=== PATIENT | female | born 1970 | race Caucasian/White ===

== ENCOUNTER → 2016-09-01 | Outpatient (CLI) | payer BC ==
[~2016-09-01] MED LIST: ALBUAER19 INH; ALPR-385 PO; BUPRTAB51 PO; DXY100 PO; ERGO500011 PO; ESTR1DIS TOP; FERR1TAB13 PO; FLUO40CA8 PO; MEDLIST; METR-163 PO; PRLSR20 PO; SACC250C3 PO; XNXUNK PO
[2016-09-02 16:13] LABS: BASO % 0.4 %; BASO ABS # 0.04 K/uL (0-0.2); COMPLETE YES; EOS % 3.5 %; HEMATOCRIT 32.3 % (37-47); IG% 0.3 %; LYMPH % 19.9 %; LYMPH ABS # 1.82 K/uL (1.2-3.4); MEAN CELL VOLUME 75.6 fL (80-100); MEAN CORPUSCULAR HEMOGLOBIN 23.2 pg (25-34); MEAN CORPUSCULAR HGB CONC 30.7 g/dl (32-36); MEAN PLATELET VOLUME 9.6 fL (7.4-10.4); MONO % 11.7 %; NEUT % 64.2 %; PLATELET COUNT 453 K/uL (130-400); RED BLOOD COUNT 4.27 M/uL (4.2-5.4); WHITE BLOOD COUNT 9.15 K/uL (4.8-10.8)
[2016-09-02 16:32] LABS: ALT/SGPT 21 U/L (12-78); AST/SGOT 13 U/L (15-37); BLOOD UREA NITROGEN 12 mg/dl (7-18); BUN/CREATININE RATIO 14.8 (10-20); CALCIUM 9.3 mg/dl (8.5-10.1); CARBON DIOXIDE 31 mmol/L (21-32); CHLORIDE 105 mmol/L (98-107); CREATININE 0.79 mg/dl (0.60-1.20); GLUCOSE 86 mg/dl (70-99); POTASSIUM 4.1 mmol/L (3.5-5.1); SODIUM 140 mmol/L (136-145)
[2016-09-02 16:42] LABS: ALB/GLOB RATIO 1.3 (0.9-2); ALKALINE PHOSPHATASE 68 U/L (45-117)
== END | disposition home or self-care (01) ==
LOC: C.LABSPEC 14:08
PROVIDERS: ATTEND Family Medicine
DX: R53.83 Other fatigue (principal); E55.9 Vitamin D deficiency, unspecified

== ENCOUNTER → 2016-09-01 | Outpatient (CLI) | payer BC | END | disposition home or self-care (01) | LOC: C.PAPS 08:34 | PROVIDERS: ATTEND Family Medicine | DX: Z01.419 Encounter for gynecological examination (general) (routine) without abnormal findings (principal) ==

== ENCOUNTER → 2016-09-16 | Outpatient (CLI) | payer BC ==
--- NOTE | 2016-09-16 14:35 | MAMMOGRAPHY REPORT ---
BILATERAL DIGITAL SCREENING MAMMOGRAM TOMOSYNTHESIS WITH CAD: 09/16/2016 CLINICAL HISTORY: Routine screening. Patient has no complaints. TECHNIQUE: Breast tomosynthesis in addition to standard 2D mammography was performed. Current study was also evaluated with a Computer Aided Detection (CAD) system. COMPARISON: Comparison is made to exams dated: 09/16/2015 mammogram, 08/23/2014 mammogram, and 10/20/19 13 mammogram - [facility]. BREAST COMPOSITION: There are scattered areas of fibroglandular density in both breasts. FINDINGS: No suspicious masses, calcifications, or areas of architectural distortion are noted in e ither breast. There has been no significant interval change compared to prior exams. Scattered bilat eral benign-appearing calcifications are not significantly changed. IMPRESSION: ACR BI-RADS CATEGORY 2: BENIGN There is no mammographic evidence of malignancy. A 1 year screening mammogram is recommended. The p atient will receive written notification of the results. Approximately 10% of breast cancers are not detected with mammography. A negative mammographic repor t should not delay biopsy if a clinically suggestive mass is present. Maryan Chairez M.D. /:09/16/2016 08:59:21 Academic Support Assistant: Iliana Stroud [facility] letter sent: Normal 1/2 BI-RADS Code: ACR BI-RADS Category 2: Benign
== END | disposition home or self-care (01) ==
LOC: C.MAMM 08:33
PROVIDERS: ATTEND Family Medicine
DX: Z12.31 Encounter for screening mammogram for malignant neoplasm of breast (principal)

== ENCOUNTER → 2016-09-30 | Outpatient (CLI) | payer BC ==
[2016-09-30 14:56] LABS: BASO % 0.7 %; BASO ABS # 0.05 K/uL (0-0.2); COMPLETE YES; EOS % 5.8 %; HEMATOCRIT 36.7 % (37-47); IG% 0.3 %; LYMPH % 26.5 %; LYMPH ABS # 1.77 K/uL (1.2-3.4); MEAN CELL VOLUME 80.1 fL (80-100); MEAN PLATELET VOLUME 9.5 fL (7.4-10.4); MONO % 9.4 %; NEUT % 57.3 %; PLATELET COUNT 447 K/uL (130-400); RED BLOOD COUNT 4.58 M/uL (4.2-5.4); WHITE BLOOD COUNT 6.67 K/uL (4.8-10.8)
== END | disposition home or self-care (01) ==
LOC: C.LABBC 11:47
PROVIDERS: ATTEND Family Medicine
DX: D50.9 Iron deficiency anemia, unspecified (principal)

== ENCOUNTER → 2016-10-28 | Outpatient (CLI) | payer BC ==
[2016-10-28 13:51] LABS: BASO % 0.5 %; BASO ABS # 0.04 K/uL (0-0.2); COMPLETE YES; EOS % 5.6 %; HEMATOCRIT 39.3 % (37-47); IG% 0.2 %; LYMPH % 26.5 %; LYMPH ABS # 2.14 K/uL (1.2-3.4); MEAN CELL VOLUME 80.9 fL (80-100); MEAN CORPUSCULAR HEMOGLOBIN 25.1 pg (25-34); MEAN PLATELET VOLUME 9.5 fL (7.4-10.4); MONO % 7.4 %; NEUT % 59.8 %; PLATELET COUNT 442 K/uL (130-400); RED BLOOD COUNT 4.86 M/uL (4.2-5.4); WHITE BLOOD COUNT 8.09 K/uL (4.8-10.8)
== END | disposition home or self-care (01) ==
LOC: C.LABBC 11:11
PROVIDERS: ATTEND Family Medicine
DX: D50.9 Iron deficiency anemia, unspecified (principal)

== ENCOUNTER → 2016-12-01 | Outpatient (CLI) | payer BC ==
[~2016-12-01] MED LIST changes: -ALPR-385 PO; -DXY100 PO; -ERGO500011 PO; -ESTR1DIS TOP; -FERR1TAB13 PO; -METR-163 PO; -SACC250C3 PO
[2016-12-01 13:16] LABS: BASO % 0.8 %; BASO ABS # 0.05 K/uL (0-0.2); COMPLETE YES; EOS % 7.3 %; IG% 0.3 %; LYMPH % 26.1 %; LYMPH ABS # 1.72 K/uL (1.2-3.4); MEAN CELL VOLUME 82.4 fL (80-100); MEAN CORPUSCULAR HEMOGLOBIN 25.8 pg (25-34); MEAN CORPUSCULAR HGB CONC 31.4 g/dl (32-36); MEAN PLATELET VOLUME 9.8 fL (7.4-10.4); MONO % 11.2 %; NEUT % 54.3 %; PLATELET COUNT 355 K/uL (130-400); RED BLOOD COUNT 4.49 M/uL (4.2-5.4)
== END | disposition home or self-care (01) ==
LOC: C.LABBC 09:24
PROVIDERS: ATTEND Family Medicine
DX: D50.9 Iron deficiency anemia, unspecified (principal)

== ENCOUNTER → 2016-12-04 | Outpatient (CLI) | payer BC ==
--- NOTE | 2016-12-04 11:13 | DIAGNOSTIC IMAGING REPORT ---
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 TECHNIQUE: Real-time grayscale and color and spectral Doppler ultrasound imaging of the pelvis was performed first using a transabdominal probe and subsequently transvaginal. COMPARISON: 09/30/2015. FINDINGS: Uterus: Retroverted and normal in size measuring 9 x 4.2 x 4.9 cm. Endometrium 11-12 mm in thickness, which is normal in the premenopausal setting. The endometrium is fairly homogeneously hyperechoic. Multiple nabothian cysts in the cervix. Right adnexa: Normal appearing right ovary. Right ovary measures 2.2 x 1.5 x 1.5 cm. Normal color Doppler flow and arterial and venous waveforms in the ovarian parenchyma. Left adnexa: Trace left adnexal free fluid, likely physiologic indicating recent ovulation. Left ovary with corpus luteum. Left ovary measures 3.5 x 3.8 x 2.1 cm. Normal color Doppler flow and arterial and venous waveforms in the ovarian parenchyma. Other: Trace pelvic free fluid, likely physiologic. IMPRESSION: 1. No evidence of ovarian mass. Normal ovaries and uterus for premenopausal status. Electronically signed by: Omar Mcgee M.D. 12/04/2016 11:11 AM Dictated Date/Time: 12/04/2016 11:06 AM
== END | disposition home or self-care (01) ==
LOC: C.ULTR 09:48
PROVIDERS: ATTEND Family Medicine
DX: Z15.01 Genetic susceptibility to malignant neoplasm of breast (principal); Z15.02 Genetic susceptibility to malignant neoplasm of ovary; Z01.818 Encounter for other preprocedural examination

== ENCOUNTER 2017-04-15 13:39 | Emergency (ER) | payer BC ==
[~2017-04-15] VITALS: Ht 170.2 cm; Wt 80.0 kg
[~2017-04-15 13:39] MED LIST changes: +DOXYCYCLINE HYCLATE 100 MG CAP PO SCH; +METRONIDAZOLE 500 MG TAB PO SCH
[2017-04-15 13:42] VITALS: TEMP 36.9; Ht 170.2 cm; Wt 80.0 kg
--- NOTE | 2017-04-15 14:03 | EMERGENCY ROOM VISIT NOTE ---
History Report prepared by Gareth: Alcides Moeller Under the Supervision of: Dr. Renato Hodges M.D. First contact with patient: 13:49 Chief Complaint: BITE Stated Complaint: CAT ATTACKED FACE History of Present Illness The patient is a 47 year old female who presents to the Emergency Room with complaints of a cat scratch to her face. The patient was scratched by her cat prior to arrival 1 hour ago. Patient has a history of breast cancer (BRCA2) and is being treated at [facility]. Patient has a surgical history of a hysterectomy and breast reduction with an upcoming mastectomy. Of note, the patient reports that the cat has all of her shots and wanted to make sure that she was not at risk for any infection and is interested in prophylactic antibiotics for management. The patient immediately washed her face upon being scratched. Patient denies back pain. She is allergic to penicillin, amoxicillin , and sulfa drugs. Of note, her Tetanus is not UTD. Source of History: patient Onset: 1 hour ago Position: head (face) Quality: other (scratches on face) Timing: other (episode) Review of Systems See HPI for pertinent positives and negatives. A total of ten systems were reviewed and were otherwise negative. Past Medical & Surgical Medical Problems: (1) BRCA2 gene mutation positive Surgical Problems: (1) H/O mastectomy Family History FH: cancer FH: heart disease Hypertension Lung disease Social History Housing Status: lives with family Occupation Status: employed Current/Historical Medications Scheduled Alprazolam (Xanax), 1 MG PO BID Bupropion (Wellbutrin-Xl), 300 MG PO DAILY Doxycycline Hyclate (Doxycycline Hyclate), 1 CAP PO BID Ergocalciferol (Vitamin D 84864 Unit), 1 TAB PO WK Estradiol (Estradiol), 1 PATCH TOP 2XWK Ferrous Sulfate (Kp Ferrous Sulfate), 325 TAB PO DAILY Fluoxetine (Prozac), 40 MG PO DAILY Metronidazole (Flagyl), 500 MG PO TID Omeprazole (Prilosec), 20 MG PO DAILY Saccharomyces Boulardii (Florastor), 1 CAP PO BID Allergies Coded Allergies: Penicillins (Unverified Allergy, Mild, 04/15/17) Codeine (Unverified Allergy, Unknown, 04/15/17) Latex (Verified Allergy, Unknown, UNKNOWN, 04/15/17) Shellfish Allergy (Verified Allergy, Unknown, UNKNOWN, 04/15/17) Sulfa Drugs (Unverified Allergy, Unknown, 04/15/17) Physical Exam Vital Signs Date Time Temp Pulse Resp B/P (MAP) Pulse Ox O2 Delivery O2 Flow Rate FiO2 04/15/17 15:40 81 18 111/70 100 04/15/17 13:42 36.9 96 18 131/77 97 Room Air Physical Exam GENERAL: Awake, alert, well-appearing, in no distress HENT: Normocephalic, atraumatic. Oropharynx unremarkable. EYES: Normal conjunctiva. Sclera non-icteric. NECK: Supple. No nuchal rigidity. FROM. No JVD. RESPIRATORY: Clear to auscultation. CARDIAC: Regular rate, normal rhythm. Extremities warm and well perfused. Pulses equal. ABDOMEN: Soft, non-distended. No tenderness to palpation. No rebound or guarding. No masses. RECTAL: Deferred. MUSCULOSKELETAL: Chest examination reveals no tenderness. The back is symmetrical on inspection without obvious abnormality. There is no CVA tenderness to palpation. No joint edema. LOWER EXTREMITIES: Calves are equal size bilaterally and non-tender. No edema. No discoloration. NEURO: Normal sensorium. No sensory or motor deficits noted. SKIN: No rash or jaundice noted. Left cheek minor puncture wound. 2 right cheek superficial punctate abrasions with mild erythema surrounding without warmth and without crepitus. Superficial abrasion to volar surfaces of bilateral forearms. Medical Decision & Procedures Medications Administered Medications (Trade) Dose Ordered Sig/Scott Route Start Time Stop Time Status Last Admin Dose Admin Metronidazole (Flagyl / Nss) 500 mg NOW STAT IV 04/15/17 14:04 04/15/17 14:06 DC 04/15/17 14:25 500 MG Doxycycline Hyclate (Vibramycin Cap) 100 mg NOW STAT PO 04/15/17 14:04 04/15/17 14:06 DC 04/15/17 14:26 100 MG Diphtheria/ Pertussis/Tetanus Vacc (Adacel Inj) 0.5 ml ONCE ONCE IM. 04/15/17 14:15 04/15/17 14:16 DC 04/15/17 14:26 0.5 ML Doxycycline Hyclate (Vibramycin Cap) 100 mg NOW STAT PO 04/15/17 15:51 04/15/17 15:53 DC 04/15/17 15:55 100 MG Metronidazole (Flagyl Tab) 500 mg NOW STAT PO 04/15/17 15:51 04/15/17 15:53 DC 04/15/17 15:56 500 MG ED Course 1349: The patient was evaluated in room B12B. A complete history and physical exam was performed. 1404: Vibramycin Cap 100 mg, PO, Flagyl/ Nss 500 mg, IV. 1415: Adacel Injection .5 ml, IM. 1450: I reevaluated the patient. Discussed results and discharge instructions: she verbalized understanding and agreement. The patient is ready for discharge. Medical Decision I reviewed the patient's past medical history, medications, and the nursing notes as described above. The patient is a 39-year-old woman with a past medical history of ovarian cancer status post resection and diagnosed BRCA mutation early undergoing prophylactic surgical management is to emergency department after having been scratched by her cat in her face and arms per history of present illness. Arrival the patient is well-appearing, afebrile stable vital signs. He is a left cheek puncture wound and right cheek punctate abrasions with mild erythema but no warmth or crepitus. The patients current complicated cancer management is reasonable to give the patient an IV dose of antibiotics and discharged on prophylactic antibiotics with follow-up with her PCP. She prefers this option. Given pcn allergy will treat with Doxycycline to cover Pasteurella and metronidazole for anaerobes. Findings and plan for follow-up reviewed with patient. Patient agreeable and d/c'd per discharge instructions. Medication Reconcilliation Current Medication List: was personally reviewed by me Blood Pressure Screening Patient's blood pressure: Normal blood pressure Blood pressure disposition: Did not require urgent referral Impression Primary Impression: Cat scratch of face Scribe Attestation The scribe's documentation has been prepared under my direction and personally reviewed by me in its entirety. I confirm that the note above accurately reflects all work, treatment, procedures, and medical decision making performed by me. Departure Information Dispostion Home / Self-Care Prescriptions Saccharomyces Boulardii (Florastor) 250 Mg Cap 1 CAP PO BID for 7 Days, #14 CAP Prov: Renato Hodges M.D. 04/15/17 Metronidazole (Flagyl) 500 Mg Tab 500 MG PO TID for 5 Days, #15 TAB Prov: Renato Hodges M.D. 04/15/17 Doxycycline Hyclate (Doxycycline Hyclate) 100 Mg Cap 1 CAP PO BID for 5 Days, #10 CAP Prov: Renato Hodges M.D. 04/15/17 Referrals Ac Fernandez DO (PCP) Patient Instructions Bites Scratches Animal, My [facility] Additional Instructions Please follow up with your primary care physician in the next 1-3 days for re- evaluation. You were given prophylactic antibiotics for your puncture wounds due to your cat scratches. Your tetanus (which includes pertussis) was updated. Otherwise, your exam did not show signs of an emergent condition at this time. Antibiotics as directed. Probiotic to help prevent antibiotic associated diarrhea. Ibuprofen for pain as needed. Benadryl or Claritin for itching and swelling as needed. Return to the emergency department for worsening symptoms as described in the accompanying instructions.
[2017-04-15] MEDS ORDERED: DOXYCYCLINE HYCLATE 100 MG CAP PO STA ×2 (14:04→15:51)
[2017-04-15] MEDS ORDERED: METRONIDAZOLE 500MG / 100ML NSS IV STA (14:04)
[2017-04-15] MEDS ORDERED: SACC250C3 PO (14:12)
[2017-04-15] MEDS ORDERED: METR-163 PO (14:12)
[2017-04-15] MEDS ORDERED: DXY100 PO (14:12)
[2017-04-15] MEDS ORDERED: DIPHTHERIA/TETANUS/PERTUSSIS 0.5 ML SYR/VIAL IM. ONE (14:15)
[2017-04-15] MEDS ORDERED: ALPR-385 PO (14:30)
[2017-04-15] MEDS ORDERED: FERR1TAB13 PO (14:30)
[2017-04-15] MEDS ORDERED: ESTR1DIS TOP (14:30)
[2017-04-15] MEDS ORDERED: ERGO500011 PO (14:30)
[2017-04-15 15:40] VITALS: BP 111/70; PULSE 81; O2SAT 100
[2017-04-15] MEDS ORDERED: METRONIDAZOLE 250 MG TAB PO STA (15:51)
[2017-04-15] MEDS ORDERED: EMPTY 8 DRAM VIAL ONE (15:54)
== END 2017-04-15 15:40 | disposition home or self-care (01) ==
LOC: C.EDB 13:40
DX: S00.81XA Abrasion of other part of head, initial encounter (principal); S01.432A Puncture wound without foreign body of left cheek and temporomandibular area, initial encounter; W55.03XA Scratched by cat, initial encounter; C50.919 Malignant neoplasm of unspecified site of unspecified female breast; Z23 Encounter for immunization

== ENCOUNTER → 2017-05-25 | Outpatient (CLI) | payer BC ==
[~2017-05-25] MED LIST changes: -ALBUAER19 INH; +ALPR-385 PO; +ALPR-411 PO; +BUDE180I INH; +BUDE1SUS8 INH; +DICL-201 PO; -DOXYCYCLINE HYCLATE 100 MG CAP PO SCH; +DXY100 PO; +ERGO500011 PO; +ESTR1DIS TOP; +FERR1TAB13 PO; +FLUT1SPR12 INH; +IRONCAP PO; -MEDLIST; -METRONIDAZOLE 500 MG TAB PO SCH; +VNTHFA/IN INH; -XNXUNK PO; +[UNRECOGNIZED DRUG - OTHER] IV
[2017-05-25 17:33] LABS: BASO % 0.6 %; BASO ABS # 0.05 K/uL (0-0.2); EOS % 6.3 %; EOS ABS # 0.49 K/uL (0-0.5); HEMATOCRIT 33.6 % (37-47); HEMOGLOBIN 10.6 g/dL (12.0-16.0); IG# 0.04 K/uL (0.00-0.02); LYMPH % 27.1 %; LYMPH ABS # 2.12 K/uL (1.2-3.4); MEAN CELL VOLUME 81.6 fL (80-100); MEAN CORPUSCULAR HEMOGLOBIN 25.7 pg (25-34); MEAN CORPUSCULAR HGB CONC 31.5 g/dl (32-36); MEAN PLATELET VOLUME 9.4 fL (7.4-10.4); MONO % 8.6 %; MONO ABS # 0.67 K/uL (0.11-0.59); NEUT % 56.9 %; NEUT ABS # 4.45 K/uL (1.4-6.5); PLATELET COUNT 496 K/uL (130-400); RED CELL DISTRIBUTION WIDTH CV 14.7 % (11.5-14.5); RED CELL DISTRIBUTION WIDTH SD 43.9 fL (36.4-46.3); WHITE BLOOD COUNT 7.82 K/uL (4.8-10.8)
== END | disposition home or self-care (01) ==
LOC: C.LABBC 12:58
PROVIDERS: ATTEND Family Medicine
DX: D50.9 Iron deficiency anemia, unspecified (principal)

== ENCOUNTER → 2017-12-16 | Outpatient (CLI) | payer BC ==
[~2017-12-16] MED LIST changes: -ALPR-385 PO; -DXY100 PO; -ESTR1DIS TOP; -FERR1TAB13 PO
[2017-12-16 17:06] LABS: BASO % 0.5 %; BASO ABS # 0.03 K/uL (0-0.2); EOS % 3.3 %; EOS ABS # 0.21 K/uL (0-0.5); HEMATOCRIT 41.3 % (37-47); HEMOGLOBIN 13.5 g/dL (12.0-16.0); IG# 0.01 K/uL (0.00-0.02); LYMPH % 29.1 %; LYMPH ABS # 1.83 K/uL (1.2-3.4); MEAN CELL VOLUME 88.2 fL (80-100); MEAN CORPUSCULAR HEMOGLOBIN 28.8 pg (25-34); MEAN CORPUSCULAR HGB CONC 32.7 g/dl (32-36); MONO % 7.5 %; MONO ABS # 0.47 K/uL (0.11-0.59); NEUT % 59.4 %; NEUT ABS # 3.73 K/uL (1.4-6.5); PLATELET COUNT 337 K/uL (130-400); RED CELL DISTRIBUTION WIDTH CV 14.3 % (11.5-14.5); RED CELL DISTRIBUTION WIDTH SD 46.2 fL (36.4-46.3); WHITE BLOOD COUNT 6.28 K/uL (4.8-10.8)
[2017-12-16 17:18] LABS: INR 0.9 (0.9-1.1); PTT PATIENT 29.2 SECONDS (21.0-31.0)
[2017-12-16 17:24] LABS: ALKALINE PHOSPHATASE 73 U/L (45-117); ALT/SGPT 27 U/L (12-78); AST/SGOT 20 U/L (15-37); BLOOD UREA NITROGEN 10 mg/dl (7-18); CALCIUM 9.2 mg/dl (8.5-10.1); CARBON DIOXIDE 29 mmol/L (21-32); CREATININE 0.87 mg/dl (0.60-1.20); GLUCOSE 97 mg/dl (70-99); SODIUM 139 mmol/L (136-145)
== END | disposition home or self-care (01) ==
LOC: C.LABBC 13:32
PROVIDERS: ATTEND Family Medicine
DX: Z01.812 Encounter for preprocedural laboratory examination (principal)